=== PATIENT | female | born 1960 ===

== ENCOUNTER 2017-07-01 13:34 | Inpatient (IN) ==
[2017-07-01] MEDS ORDERED: GLUCAGON 1 MG VIAL IM PRN (15:57)
[2017-07-01] MEDS ORDERED: DEXTROSE 50% 25 GM/50 ML VIAL IV PRN (15:57)
[2017-07-01] MEDS ORDERED: INFLUENZA VIRUS VACCINE 0.5 ML SYRINGE IM ONE (16:21)
[2017-07-01] MEDS ORDERED: SODIUM CHLORIDE 0.9% 1,000 ML IV ONE (16:51)
[2017-07-01 17:30] LABS: Basophils % 0.2 % (0.0-0.8); Eosinophils % 0.3 % (0.00-10.9); Hematocrit 23.2 VOL% (35.7-47.0); Hemoglobin 7.5 GM/DL (12.0-16.0); Immature Granulocytes % 0.5 %; Immature Granulocytes Absolute 0.07 #; Lymphocytes # 1.4 10*3/uL (1.4-4.0); Mean Corpuscular HGB Conc 32.3 GM/DL (32-36); Mean Corpuscular Hemoglobin 29 PG (27-34); Mean Corpuscular Volume 90.3 FL (87-102); Mean Platelet Volume 12.5 FL (9.6-12.0); Monocytes # 0.9 10*3/uL (0.11-0.8); Monocytes % 6.3 % (1.7-12.7); Neutrophils % 82.7 % (38.7-73.9); Platelet Count 80 T/CUMM (130-400); Red Blood Count 2.57 MC/CUMM (3.8-5.5); Red Cell Distribution Width 15.7 % (9.3-17.3); White Blood Count 14.4 T/CUMM (4-12)
[2017-07-01 17:51] LABS: Osmolality,Calculated 294.7 MOS/KG (273-304); Potassium 4.6 MMOL/L (3.5-5.1)
[2017-07-01] MEDS ORDERED: LEVOFLOXACIN INJ 500 MG in PREMIX 1 EACH IV ONE (18:00)
[2017-07-01] MEDS ORDERED: LEVOFLOXACIN INJ 750 MG in PREMIX 1 EACH IV ONE (18:30)
[2017-07-01] MEDS ORDERED: SODIUM CHLORIDE 0.9% 1,000 ML IV SCH (19:00)
[2017-07-01] MEDS ORDERED: FUROSEMIDE 20 MG/2 ML VIAL IV SCH (19:00)
[2017-07-01 19:38] LABS: Band Neutrophils 1 % (0-10); Eosinophils 1 % (0-10); Lymphocytes 11 % (20-55); Myelocytes 2 %; Segmented Neutrophils 82 % (50-85); Total Cells Counted 100
[2017-07-01 19:39] LABS: Anisocytosis 1+; Hypochromasia 1+; Platelet Estimate Decreased
[2017-07-02 02:15] LABS: Apearance,Urine CLEAR (Clear); Bilirubin,Urine Negative (Negative); Blood, Urine Small mg/dL (Negative); Glucose,Urine (UA) 50 mg/dL (Negative); Ketones,Urine Negative (Negative); Mucus,Urine Occasional /LPF (Occasional); Nitrite,Urine Negative (Negative); Protein,Urine 100 MG/DL; RBC,Urine 2 /HPF (0-4); Squamous Epithelial Cell,Urine Occasional /HPF (0-10); Urine Color Straw (Yellow); Urine Specific Gravity 1.006 (1.001-1.035); Urine Urobilinogen < 2.0 EU/DL (0.2-1.0); WBC,Urine 13 /HPF (0-6)
[2017-07-02] MEDS ORDERED: SODIUM CHLORIDE 0.45% 1,000 ML IV SCH (03:00)
[2017-07-02 04:24] LABS: ABG Base Excess -9.5 MMOL/L (-2.5-2.5); ABG HCO3 15.6 MMOL/L (20-26); ABG Oxygen Saturation 91.4 % (95-100); ABG PCO2 30.6 MM HG (35-48); ABG PH 7.326 (7.35-7.45); ABG PO2 60.8 MM HG (80-95); ABG TCO2 16.6 MMOL/L (23-27); Allen Test Positive
[2017-07-02 05:42] LABS: Basophils % 0.2 % (0.0-0.8); Eosinophils # 0.2 10*3/uL (0.0-0.87); Eosinophils % 1.6 % (0.00-10.9); Hematocrit 21.6 VOL% (35.7-47.0); Immature Granulocytes % 0.7 %; Immature Granulocytes Absolute 0.09 #; Lymphocytes # 3.2 10*3/uL (1.4-4.0); Lymphocytes % 24.1 % (21.3-54.2); Mean Corpuscular HGB Conc 32.4 GM/DL (32-36); Mean Corpuscular Hemoglobin 29 PG (27-34); Monocytes # 0.8 10*3/uL (0.11-0.8); Monocytes % 5.8 % (1.7-12.7); Neutrophils % 67.6 % (38.7-73.9); Red Cell Distribution Width 15.9 % (9.3-17.3); White Blood Count 13.2 T/CUMM (4-12)
[2017-07-02 05:48] LABS: INR 1.2; PT Patient Result 12.2 SECS
[2017-07-02 05:58] LABS: Platelet Count 67 T/CUMM (130-400)
[2017-07-02 06:17] LABS: Albumin 2.7 G/DL (3.4-5.0); Bilirubin,Total 0.9 MG/DL (0.2-1.0); Calcium 7.5 MG/DL (8.5-10.1); Osmolality,Calculated 297.3 MOS/KG (273-304); Potassium 4.9 MMOL/L (3.5-5.1); Total Protein 6.7 G/DL (6.4-8.3)
[2017-07-02 06:22] LABS: Calcium 7.5 MG/DL (8.5-10.1); Magnesium 1.8 MG/DL (1.8-2.4); Osmolality,Calculated 297.3 MOS/KG (273-304); Potassium 4.9 MMOL/L (3.5-5.1)
[2017-07-02 06:51] LABS: Hypochromasia 1+; Microcytosis 1+; Platelet Estimate Decreased
[2017-07-02 06:52] LABS: Anisocytosis 1+
[2017-07-02] MEDS ORDERED: FUROSEMIDE 40 MG/4 ML VIAL IV ONE (07:05)
[2017-07-02] MEDS: cefTRIAXone 1,000 MG in SYRINGE 1 EACH IV SCH ×2 (11:54→23:13)
[2017-07-02 13:38] LABS: Apearance,Urine CLEAR (Clear); Bacteria,Urine Occasional /HPF (Few); Bilirubin,Urine Negative (Negative); Blood, Urine Small mg/dL (Negative); Glucose,Urine (UA) 50 mg/dL (Negative); Ketones,Urine Negative (Negative); Mucus,Urine Occasional /LPF (Occasional); Nitrite,Urine Negative (Negative); Protein,Urine 100 MG/DL; RBC,Urine 4 /HPF (0-4); Squamous Epithelial Cell,Urine Occasional /HPF (0-10); Urine Color Straw (Yellow); Urine Specific Gravity 1.005 (1.001-1.035); Urine Urobilinogen < 2.0 EU/DL (0.2-1.0); WBC,Urine 16 /HPF (0-6)
[2017-07-02] MEDS ORDERED: FUROSEMIDE 100 MG/10 ML VIAL IV ONE (14:47)
[2017-07-02] MEDS ORDERED: LEVOFLOXACIN INJ 750 MG in PREMIX 1 EACH IV ONE (18:00)
[2017-07-03 06:14] LABS: Albumin 2.8 G/DL (3.4-5.0); Calcium 7.9 MG/DL (8.5-10.1); Osmolality,Calculated 302.5 MOS/KG (273-304); Phosphorous 5.3 MG/DL (2.5-4.9)
[2017-07-03] MEDS ORDERED: FUROSEMIDE 100 MG/10 ML VIAL IV ONE (09:47)
[2017-07-03] MEDS: cefTRIAXone 1,000 MG in SYRINGE 1 EACH IV SCH ×2 (10:21→23:39)
[2017-07-03] MEDS ORDERED: diphenhydrAMINE CAP 25 MG CAPSULE PO PRN (16:26)
[2017-07-03] MEDS ORDERED: ACETAMINOPHEN 325 MG TABLET PO PRN (16:26)
[2017-07-03] MEDS ORDERED: SODIUM CHLORIDE 0.9% 1,000 ML IV PRN (16:26)
[2017-07-03] MEDS ORDERED: LEVOFLOXACIN INJ 500 MG in PREMIX 1 EACH IV SCH (18:00)
[2017-07-03] MEDS ORDERED: LEVOFLOXACIN INJ 250 MG in PREMIX 1 EACH IV SCH (18:00)
[2017-07-04 06:06] LABS: Basophils # 0.1 10*3/uL (0.0-0.2); Basophils % 0.7 % (0.0-0.8); Eosinophils # 0.7 10*3/uL (0.0-0.87); Eosinophils % 7.2 % (0.00-10.9); Hematocrit 28.8 VOL% (35.7-47.0); Immature Granulocytes % 0.7 %; Immature Granulocytes Absolute 0.07 #; Lymphocytes # 1.9 10*3/uL (1.4-4.0); Lymphocytes % 19.4 % (21.3-54.2); Mean Corpuscular Hemoglobin 29 PG (27-34); Mean Corpuscular Volume 85.7 FL (87-102); Mean Platelet Volume 12.3 FL (9.6-12.0); Monocytes # 0.6 10*3/uL (0.11-0.8); Monocytes % 6.2 % (1.7-12.7); Neutrophils # 6.3 10*3/uL (1.4-7.4); Neutrophils % 65.8 % (38.7-73.9); Red Cell Distribution Width 16.2 % (9.3-17.3); White Blood Count 9.5 T/CUMM (4-12)
[2017-07-04 06:21] LABS: Red Blood Count 3.36 MC/CUMM (3.8-5.5)
[2017-07-04 06:22] LABS: Hemoglobin 9.8 GM/DL (12.0-16.0); Platelet Count 67 T/CUMM (130-400)
[2017-07-04 06:29] LABS: Giant Platelets Few; Hypochromasia Slight; Microcytosis Slight; Ovalocytes Slight; Platelet Estimate Decreased
[2017-07-04 06:31] LABS: Calcium 8.1 MG/DL (8.5-10.1); Osmolality,Calculated 307.5 MOS/KG (273-304); Potassium 4.9 MMOL/L (3.5-5.1)
[2017-07-04 06:33] LABS: % Iron Saturation 37.8 % (18-50)
[2017-07-04] MEDS: cefTRIAXone 1,000 MG in SYRINGE 1 EACH IV SCH ×2 (11:03→22:55)
[2017-07-04] MEDS: amLODIPine 10 MG TABLET PO SCH (14:12)
[2017-07-04] MEDS: INSULIN LISPRO 100 UNIT/ML SUBCUT SCH ×2 (17:19→20:18)
[2017-07-04] MEDS: SODIUM BICARBONATE 650 MG TABLET PO SCH (20:17)
[2017-07-05] MEDS: INSULIN LISPRO 100 UNIT/ML SUBCUT SCH ×2 (08:58→13:58)
[2017-07-05] MEDS: SODIUM BICARBONATE 650 MG TABLET PO SCH (09:00)
[2017-07-05] MEDS: amLODIPine 10 MG TABLET PO SCH (09:00)
[2017-07-05 12:52] LABS: Calcium 7.7 MG/DL (8.5-10.1); Osmolality,Calculated 309.7 MOS/KG (273-304); Potassium 4.9 MMOL/L (3.5-5.1)
[2017-07-05] MEDS: cefTRIAXone 1,000 MG in SYRINGE 1 EACH IV SCH (13:01)
[2017-07-05 16:22] VITALS: BP 145/71
== END 2017-07-05 16:00 | disposition home or self-care (01) | DRG 682 ==
LOC: SUATTDRO 15:25 → N.5E 15:25
PROVIDERS: ADMIT Internal Medicine Cardiovascular Disease; ATTEND Internal Medicine

== ENCOUNTER 2017-07-21 05:01 | Inpatient (IN) ==
[2017-07-21] MEDS ORDERED: ALBUTEROL 2.5 MG/3 ML NEB RESP TX PRN (05:45)
[2017-07-21] MEDS ORDERED: DEXTROSE 50% 25 GM/50 ML VIAL IV PRN (06:01)
[2017-07-21] MEDS ORDERED: ACETAMINOPHEN 325 MG TABLET PO PRN (06:01)
[2017-07-21] MEDS ORDERED: GLUCAGON 1 MG VIAL IM PRN (06:01)
[2017-07-21] MEDS ORDERED: MAGNESIUM SULF RIDER 4 GM in PREMIX 1 EACH IV PRN (06:04)
[2017-07-21] MEDS ORDERED: MAGNESIUM SULF RIDER 2 GM in PREMIX 1 EACH IV PRN (06:04)
[2017-07-21] MEDS ORDERED: AZITHROMYCIN INJ 500 MG in SODIUM CHLORIDE 0.9% 250 ML IV SCH (06:30)
[2017-07-21] MEDS ORDERED: ALBUTEROL/IPRATROPIUM 3 ML NEB RESP TX SCH (07:00)
[2017-07-21] MEDS ORDERED: AZITHROMYCIN 500 MG VIAL IV ONE (07:27)
[2017-07-21] MEDS ORDERED: ENOXAPARIN 40 MG/0.4 ML SYRINGE ONE (07:28)
[2017-07-21] MEDS: ENOXAPARIN 30 MG/0.3 ML SYRINGE SUBCUT SCH (07:35)
[2017-07-21] MEDS ORDERED: FUROSEMIDE 100 MG/10 ML VIAL ONE (08:28)
[2017-07-21] MEDS ORDERED: PANTOPRAZOLE 40 MG TABLET PO ONE (08:28)
[2017-07-21] MEDS: FUROSEMIDE 40 MG/4 ML VIAL IV SCH ×2 (08:28→19:56)
[2017-07-21] MEDS: PANTOPRAZOLE 40 MG TABLET PO SCH (08:45)
[2017-07-21] MEDS ORDERED: cefTRIAXone 1,000 MG VIAL ONE (09:45)
[2017-07-21] MEDS ORDERED: ALBUTEROL 2.5 MG/3 ML NEB RESP TX ONE (10:40)
[2017-07-21] MEDS: INSULIN REGULAR 100 UNIT/ML SUBCUT SCH ×3 (10:50→22:05)
[2017-07-21] MEDS ORDERED: INSULIN REGULAR 100 UNIT/ML ONE (10:51)
[2017-07-21 12:38] LABS: ABG Base Excess -5.8 MMOL/L (-2.5-2.5); ABG HCO3 19.5 MMOL/L (20-26); ABG Oxygen Saturation 94.3 % (95-100); ABG PCO2 40.4 MM HG (35-48); ABG PH 7.304 (7.35-7.45); ABG PO2 75.4 MM HG (80-95)
[2017-07-21] MEDS ORDERED: hydrALAZINE 20 MG/1 ML VIAL IV PRN (13:10)
[2017-07-21 13:33] LABS: Basophils % 0.4 % (0.0-0.8); Eosinophils # 0.1 10*3/uL (0.0-0.87); Eosinophils % 0.9 % (0.00-10.9); Hematocrit 23.2 VOL% (35.7-47.0); Hemoglobin 7.6 GM/DL (12.0-16.0); Immature Granulocytes % 0.3 %; Immature Granulocytes Absolute 0.03 #; Lymphocytes # 2.1 10*3/uL (1.4-4.0); Lymphocytes % 23.5 % (21.3-54.2); Mean Corpuscular HGB Conc 32.8 GM/DL (32-36); Mean Corpuscular Hemoglobin 30 PG (27-34); Mean Corpuscular Volume 91.7 FL (87-102); Mean Platelet Volume 13.1 FL (9.6-12.0); Monocytes # 0.5 10*3/uL (0.11-0.8); Monocytes % 5.6 % (1.7-12.7); Neutrophils # 6.2 10*3/uL (1.4-7.4); Neutrophils % 69.3 % (38.7-73.9); Platelet Count 65 T/CUMM (130-400); Red Blood Count 2.53 MC/CUMM (3.8-5.5); Red Cell Distribution Width 15.9 % (9.3-17.3); White Blood Count 8.9 T/CUMM (4-12)
[2017-07-21 14:10] LABS: Bilirubin,Total 0.7 MG/DL (0.2-1.0); Calcium 8.1 MG/DL (8.5-10.1); Osmolality,Calculated 311.3 MOS/KG (273-304); Potassium 5.4 MMOL/L (3.5-5.1); Total Protein 7.5 G/DL (6.4-8.3)
[2017-07-21] MEDS ORDERED: SODIUM POLYSTYRENE SULFATE 15 GM/60 ML BOTTLE PO STA (14:57)
[2017-07-21] MEDS ORDERED: VANCOMYCIN INJ 1,250 MG in SODIUM CHLORIDE 0.9% 250 ML IV PRN (15:32)
[2017-07-21 15:55] LABS: Apearance,Urine CLEAR (Clear); Bacteria,Urine Occasional /HPF (Few); Bilirubin,Urine Negative (Negative); Blood, Urine Small mg/dL (Negative); Glucose,Urine (UA) 50 mg/dL (Negative); Hyaline Casts,Urine 1 /LPF (0-3); Ketones,Urine Negative (Negative); Nitrite,Urine Negative (Negative); Protein,Urine 100 MG/DL; RBC,Urine 4 /HPF (0-4); Squamous Epithelial Cell,Urine Occasional /HPF (0-10); Urine Color Straw (Yellow); Urine Specific Gravity 1.006 (1.001-1.035); Urine Urobilinogen < 2.0 EU/DL (0.2-1.0); WBC,Urine 5 /HPF (0-6)
[2017-07-21] MEDS ORDERED: LEVOFLOXACIN INJ 750 MG in PREMIX 1 EACH IV ONE (16:00)
[2017-07-21] MEDS: ALBUTEROL/IPRATROPIUM 3 ML NEB RESP TX SCH ×3 (16:17→23:12)
[2017-07-21] MEDS ORDERED: VANCOMYCIN INJ 1,250 MG in SODIUM CHLORIDE 0.45% 250 ML IV ONE (16:30)
[2017-07-21] MEDS: PIPERACILLIN/TAZOBACTAM 3,375 MG in SODIUM CHLORIDE 0.9% 100 ML IV SCH (22:06)
[2017-07-22] MEDS: ALBUTEROL/IPRATROPIUM 3 ML NEB RESP TX SCH ×6 (03:02→22:08)
[2017-07-22 05:38] LABS: Basophils % 0.4 % (0.0-0.8); Eosinophils # 0.5 10*3/uL (0.0-0.87); Eosinophils % 6.6 % (0.00-10.9); Hematocrit 22.7 VOL% (35.7-47.0); Hemoglobin 7.2 GM/DL (12.0-16.0); Immature Granulocytes % 0.6 %; Immature Granulocytes Absolute 0.05 #; Lymphocytes # 1.1 10*3/uL (1.4-4.0); Lymphocytes % 13.7 % (21.3-54.2); Mean Corpuscular HGB Conc 31.7 GM/DL (32-36); Mean Corpuscular Hemoglobin 29 PG (27-34); Mean Corpuscular Volume 92.3 FL (87-102); Mean Platelet Volume 13.7 FL (9.6-12.0); Monocytes # 0.6 10*3/uL (0.11-0.8); Monocytes % 7.9 % (1.7-12.7); Neutrophils # 5.6 10*3/uL (1.4-7.4); Neutrophils % 70.8 % (38.7-73.9); Platelet Count 53 T/CUMM (130-400); Red Blood Count 2.46 MC/CUMM (3.8-5.5); Red Cell Distribution Width 15.9 % (9.3-17.3)
[2017-07-22 05:41] LABS: Calcium 7.7 MG/DL (8.5-10.1); Osmolality,Calculated 310.4 MOS/KG (273-304); Potassium 5.1 MMOL/L (3.5-5.1)
[2017-07-22] MEDS ORDERED: cefTRIAXone 1,000 MG in SYRINGE 1 EACH IV SCH (06:00)
[2017-07-22] MEDS: ENOXAPARIN 30 MG/0.3 ML SYRINGE SUBCUT SCH (06:29)
[2017-07-22 06:32] LABS: Giant Platelets Few; Hypochromasia 1+; Ovalocytes Slight; Platelet Estimate Decreased
[2017-07-22 06:33] LABS: Microcytosis Slight
[2017-07-22] MEDS: INSULIN REGULAR 100 UNIT/ML SUBCUT SCH ×4 (08:33→20:23)
[2017-07-22] MEDS: PANTOPRAZOLE 40 MG TABLET PO SCH (08:34)
[2017-07-22] MEDS: FUROSEMIDE 40 MG/4 ML VIAL IV SCH ×2 (08:34→16:18)
[2017-07-22] MEDS: PIPERACILLIN/TAZOBACTAM 3,375 MG in SODIUM CHLORIDE 0.9% 100 ML IV SCH ×2 (08:36→20:26)
[2017-07-22] MEDS ORDERED: CARBOXYMETHYLCELLULOSE 1% OPH SOLN BOTH EYES PRN (17:02)
[2017-07-22] MEDS: GABAPENTIN 100 MG CAPSULE PO SCH ×2 (17:58→20:22)
[2017-07-22] MEDS: DOCUSATE SODIUM 100 MG CAPSULE PO SCH (20:22)
[2017-07-22] MEDS: amLODIPine 10 MG TABLET PO SCH (20:22)
[2017-07-22] MEDS: PRAVASTATIN 40 MG TABLET PO SCH (20:22)
[2017-07-22] MEDS: SODIUM BICARBONATE 650 MG TABLET PO SCH (20:22)
[2017-07-23] MEDS: ALBUTEROL/IPRATROPIUM 3 ML NEB RESP TX SCH ×6 (02:46→23:28)
[2017-07-23 07:01] LABS: Basophils # 0.1 10*3/uL (0.0-0.2); Basophils % 0.6 % (0.0-0.8); Eosinophils % 10.5 % (0.00-10.9); Hematocrit 24.4 VOL% (35.7-47.0); Hemoglobin 7.9 GM/DL (12.0-16.0); Immature Granulocytes % 0.4 %; Immature Granulocytes Absolute 0.04 #; Lymphocytes # 1.9 10*3/uL (1.4-4.0); Lymphocytes % 19.8 % (21.3-54.2); Mean Corpuscular HGB Conc 32.4 GM/DL (32-36); Mean Corpuscular Hemoglobin 29 PG (27-34); Mean Platelet Volume 14.1 FL (9.6-12.0); Monocytes # 0.7 10*3/uL (0.11-0.8); Monocytes % 7.7 % (1.7-12.7); Neutrophils # 5.7 10*3/uL (1.4-7.4); Platelet Count 61 T/CUMM (130-400); Red Blood Count 2.71 MC/CUMM (3.8-5.5); White Blood Count 9.4 T/CUMM (4-12)
[2017-07-23 07:17] LABS: Magnesium 2.2 MG/DL (1.8-2.4); Osmolality,Calculated 309.5 MOS/KG (273-304); Potassium 5.4 MMOL/L (3.5-5.1)
[2017-07-23 07:35] LABS: Eosinophils 6 % (0-10); Hypochromasia 2+; Lymphocytes 18 % (20-55); Microcytosis 1+; Platelet Estimate Decreased; Segmented Neutrophils 70 % (50-85); Total Cells Counted 100
[2017-07-23] MEDS: INSULIN REGULAR 100 UNIT/ML SUBCUT SCH ×4 (08:39→20:28)
[2017-07-23] MEDS: PIPERACILLIN/TAZOBACTAM 3,375 MG in SODIUM CHLORIDE 0.9% 100 ML IV SCH (10:12)
[2017-07-23] MEDS: SODIUM BICARBONATE 650 MG TABLET PO SCH ×2 (10:12→20:23)
[2017-07-23] MEDS: PANTOPRAZOLE 40 MG TABLET PO SCH (10:12)
[2017-07-23] MEDS: MULTIVITAMIN (CENTRUM) TABLET PO SCH (10:13)
[2017-07-23] MEDS: FERROUS SULFATE 325 MG TABLET PO SCH (10:13)
[2017-07-23] MEDS: GABAPENTIN 100 MG CAPSULE PO SCH ×3 (10:14→20:24)
[2017-07-23] MEDS: FUROSEMIDE 40 MG/4 ML VIAL IV SCH ×2 (10:14→15:37)
[2017-07-23] MEDS: FOLIC ACID 1 MG TABLET PO SCH (10:14)
[2017-07-23] MEDS: LEVOFLOXACIN INJ 500 MG in PREMIX 1 EACH IV SCH (15:36)
[2017-07-23] MEDS: amLODIPine 10 MG TABLET PO SCH (18:10)
[2017-07-23] MEDS: PRAVASTATIN 40 MG TABLET PO SCH (20:23)
[2017-07-23] MEDS: DOCUSATE SODIUM 100 MG CAPSULE PO SCH (20:24)
[2017-07-24 03:20] LABS: Calcium 7.7 MG/DL (8.5-10.1); Magnesium 2.2 MG/DL (1.8-2.4); Osmolality,Calculated 312.7 MOS/KG (273-304); Potassium 5.3 MMOL/L (3.5-5.1)
[2017-07-24] MEDS: ALBUTEROL/IPRATROPIUM 3 ML NEB RESP TX SCH ×6 (03:47→23:00)
[2017-07-24 03:53] LABS: Basophils % 0.5 % (0.0-0.8); Eosinophils # 1.1 10*3/uL (0.0-0.87); Eosinophils % 12.1 % (0.00-10.9); Hemoglobin 7.5 GM/DL (12.0-16.0); Immature Granulocytes % 0.5 %; Immature Granulocytes Absolute 0.04 #; Lymphocytes # 1.8 10*3/uL (1.4-4.0); Lymphocytes % 20.5 % (21.3-54.2); Mean Corpuscular HGB Conc 32.6 GM/DL (32-36); Mean Corpuscular Hemoglobin 29 PG (27-34); Mean Corpuscular Volume 88.8 FL (87-102); Monocytes # 0.6 10*3/uL (0.11-0.8); Monocytes % 7.2 % (1.7-12.7); Neutrophils # 5.2 10*3/uL (1.4-7.4); Neutrophils % 59.2 % (38.7-73.9); Platelet Count 56 T/CUMM (130-400); Red Blood Count 2.59 MC/CUMM (3.8-5.5); White Blood Count 8.8 T/CUMM (4-12)
[2017-07-24 07:55] LABS: Eosinophils 16 % (0-10); Hypochromasia 2+; Lymphocytes 16 % (20-55); Platelet Estimate Decreased; Segmented Neutrophils 62 % (50-85); Total Cells Counted 100
[2017-07-24] MEDS: FERROUS SULFATE 325 MG TABLET PO SCH (09:24)
[2017-07-24] MEDS: INSULIN REGULAR 100 UNIT/ML SUBCUT SCH ×4 (09:24→21:53)
[2017-07-24] MEDS: SODIUM BICARBONATE 650 MG TABLET PO SCH ×2 (09:25→21:52)
[2017-07-24] MEDS: MULTIVITAMIN (CENTRUM) TABLET PO SCH (09:25)
[2017-07-24] MEDS: FOLIC ACID 1 MG TABLET PO SCH (09:25)
[2017-07-24] MEDS: GABAPENTIN 100 MG CAPSULE PO SCH ×3 (09:26→21:52)
[2017-07-24] MEDS: PANTOPRAZOLE 40 MG TABLET PO SCH (09:27)
[2017-07-24] MEDS: FUROSEMIDE 40 MG/4 ML VIAL IV SCH (09:27)
[2017-07-24] MEDS: amLODIPine 10 MG TABLET PO SCH (18:15)
[2017-07-24] MEDS: PRAVASTATIN 40 MG TABLET PO SCH (21:52)
[2017-07-24] MEDS: DOCUSATE SODIUM 100 MG CAPSULE PO SCH (21:52)
[2017-07-25] MEDS: ALBUTEROL/IPRATROPIUM 3 ML NEB RESP TX SCH ×6 (03:22→23:39)
[2017-07-25 07:04] LABS: Basophils % 0.4 % (0.0-0.8); Eosinophils # 0.8 10*3/uL (0.0-0.87); Eosinophils % 8.5 % (0.00-10.9); Hematocrit 24.8 VOL% (35.7-47.0); Hemoglobin 8.2 GM/DL (12.0-16.0); Immature Granulocytes % 0.2 %; Immature Granulocytes Absolute 0.02 #; Lymphocytes # 2.1 10*3/uL (1.4-4.0); Lymphocytes % 23.3 % (21.3-54.2); Mean Corpuscular HGB Conc 33.1 GM/DL (32-36); Mean Corpuscular Hemoglobin 29 PG (27-34); Mean Corpuscular Volume 87.9 FL (87-102); Mean Platelet Volume 13.3 FL (9.6-12.0); Monocytes # 0.6 10*3/uL (0.11-0.8); Monocytes % 6.4 % (1.7-12.7); Neutrophils # 5.4 10*3/uL (1.4-7.4); Neutrophils % 61.2 % (38.7-73.9); Platelet Count 59 T/CUMM (130-400); Red Blood Count 2.82 MC/CUMM (3.8-5.5); Red Cell Distribution Width 15.8 % (9.3-17.3); White Blood Count 8.9 T/CUMM (4-12)
[2017-07-25] MEDS ORDERED: EPOETIN ALFA 2,000 UNIT/1 ML VIAL IV PRN (07:25)
[2017-07-25 07:31] LABS: Giant Platelets Few; Hypochromasia Slight; Ovalocytes Slight; Platelet Estimate Decreased
[2017-07-25 07:32] LABS: Microcytosis Slight
[2017-07-25 07:37] LABS: Calcium 7.9 MG/DL (8.5-10.1); Magnesium 2.3 MG/DL (1.8-2.4); Osmolality,Calculated 309.8 MOS/KG (273-304); Potassium 5.1 MMOL/L (3.5-5.1)
[2017-07-25] MEDS: INSULIN REGULAR 100 UNIT/ML SUBCUT SCH ×4 (08:20→21:38)
[2017-07-25] MEDS: LEVOFLOXACIN INJ 500 MG in PREMIX 1 EACH IV SCH (08:21)
[2017-07-25 11:52] LABS: Hepatitis B Surface Ag Quant 0.33 Index; Hepatitis B Surface Ag Result Negative (Negative)
[2017-07-25] MEDS ORDERED: HEPARIN 5,000 UNIT/1 ML VIAL ONE (12:08)
[2017-07-25 12:51] LABS: Hepatitis A Ab IgM Quant 0.15 Index; Hepatitis A Ab IgM Result Negative (Negative); Hepatitis B Core IgM Quant 0.21 Index; Hepatitis B Core IgM Result Negative (Negative)
[2017-07-25 12:52] LABS: Hepatitis C Virus Ab Quant 0.04 Index; Hepatitis C Virus Ab Result Negative (Negative)
[2017-07-25] MEDS ORDERED: ceFAZolin 1,000 MG VIAL ONE (13:00)
[2017-07-25] MEDS ORDERED: PROPOFOL 200 MG/20 ML VIAL IV ONE (13:19)
[2017-07-25] MEDS ORDERED: fentaNYL 100 MCG/2 ML VIAL ONE (13:19)
[2017-07-25] MEDS ORDERED: HEPARIN 10,000 UNIT/10 ML VIAL IV PRN (15:05)
[2017-07-25] MEDS: GABAPENTIN 100 MG CAPSULE PO SCH ×2 (16:48→21:38)
[2017-07-25] MEDS: SODIUM BICARBONATE 650 MG TABLET PO SCH ×2 (16:49→21:37)
[2017-07-25] MEDS: MULTIVITAMIN (CENTRUM) TABLET PO SCH (17:22)
[2017-07-25] MEDS: FOLIC ACID 1 MG TABLET PO SCH (17:22)
[2017-07-25] MEDS: PANTOPRAZOLE 40 MG TABLET PO SCH (17:22)
[2017-07-25] MEDS: FERROUS SULFATE 325 MG TABLET PO SCH (17:22)
[2017-07-25] MEDS: PRAVASTATIN 40 MG TABLET PO SCH (21:38)
[2017-07-25] MEDS: DOCUSATE SODIUM 100 MG CAPSULE PO SCH (21:38)
[2017-07-25] MEDS: amLODIPine 10 MG TABLET PO SCH (21:38)
[2017-07-26] MEDS: ALBUTEROL/IPRATROPIUM 3 ML NEB RESP TX SCH ×5 (02:41→20:09)
[2017-07-26 06:34] LABS: Basophils % 0.5 % (0.0-0.8); Eosinophils # 0.7 10*3/uL (0.0-0.87); Eosinophils % 8.6 % (0.00-10.9); Hematocrit 26.4 VOL% (35.7-47.0); Hemoglobin 8.5 GM/DL (12.0-16.0); Immature Granulocytes % 0.6 %; Immature Granulocytes Absolute 0.05 #; Lymphocytes # 1.6 10*3/uL (1.4-4.0); Lymphocytes % 19.3 % (21.3-54.2); Mean Corpuscular HGB Conc 32.2 GM/DL (32-36); Mean Corpuscular Hemoglobin 29 PG (27-34); Mean Corpuscular Volume 89.2 FL (87-102); Mean Platelet Volume 13.7 FL (9.6-12.0); Monocytes # 0.7 10*3/uL (0.11-0.8); Monocytes % 8.7 % (1.7-12.7); Neutrophils # 5.3 10*3/uL (1.4-7.4); Neutrophils % 62.3 % (38.7-73.9); Platelet Count 56 T/CUMM (130-400); Red Blood Count 2.96 MC/CUMM (3.8-5.5); Red Cell Distribution Width 15.9 % (9.3-17.3); White Blood Count 8.5 T/CUMM (4-12)
[2017-07-26 07:03] LABS: Calcium 8.3 MG/DL (8.5-10.1); Magnesium 2.4 MG/DL (1.8-2.4); Osmolality,Calculated 302.4 MOS/KG (273-304); Potassium 4.8 MMOL/L (3.5-5.1)
[2017-07-26 07:08] LABS: Hypochromasia 1+; Microcytosis Slight; Platelet Estimate Decreased
[2017-07-26] MEDS: GABAPENTIN 100 MG CAPSULE PO SCH ×3 (09:53→21:37)
[2017-07-26] MEDS: SODIUM BICARBONATE 650 MG TABLET PO SCH ×2 (09:53→21:35)
[2017-07-26] MEDS: FERROUS SULFATE 325 MG TABLET PO SCH (09:54)
[2017-07-26] MEDS: MULTIVITAMIN (CENTRUM) TABLET PO SCH (09:54)
[2017-07-26] MEDS: FOLIC ACID 1 MG TABLET PO SCH (09:54)
[2017-07-26] MEDS: PANTOPRAZOLE 40 MG TABLET PO SCH (09:54)
[2017-07-26] MEDS: INSULIN REGULAR 100 UNIT/ML SUBCUT SCH ×4 (09:55→21:37)
[2017-07-26] MEDS ORDERED: ONDANSETRON 4 MG/2 ML VIAL IV PRN (13:05)
[2017-07-26] MEDS: amLODIPine 10 MG TABLET PO SCH (21:36)
[2017-07-26] MEDS: DOCUSATE SODIUM 100 MG CAPSULE PO SCH (21:36)
[2017-07-26] MEDS: PRAVASTATIN 40 MG TABLET PO SCH (21:36)
[2017-07-27] MEDS: ALBUTEROL/IPRATROPIUM 3 ML NEB RESP TX SCH ×7 (00:19→23:59)
[2017-07-27 06:27] LABS: Basophils # 0.1 10*3/uL (0.0-0.2); Basophils % 0.5 % (0.0-0.8); Eosinophils # 0.6 10*3/uL (0.0-0.87); Eosinophils % 6.2 % (0.00-10.9); Hematocrit 28.8 VOL% (35.7-47.0); Hemoglobin 9.2 GM/DL (12.0-16.0); Immature Granulocytes % 1.1 %; Immature Granulocytes Absolute 0.11 #; Lymphocytes # 3.2 10*3/uL (1.4-4.0); Lymphocytes % 31.3 % (21.3-54.2); Mean Corpuscular HGB Conc 31.9 GM/DL (32-36); Mean Corpuscular Hemoglobin 29 PG (27-34); Mean Corpuscular Volume 91.1 FL (87-102); Mean Platelet Volume 13.7 FL (9.6-12.0); NRBC # 0.03 10*3/uL; Neutrophils # 5.2 10*3/uL (1.4-7.4); Neutrophils % 50.9 % (38.7-73.9); Platelet Count 56 T/CUMM (130-400); Red Blood Count 3.16 MC/CUMM (3.8-5.5); Red Cell Distribution Width 15.7 % (9.3-17.3); White Blood Count 10.1 T/CUMM (4-12)
[2017-07-27 06:53] LABS: Calcium 8.5 MG/DL (8.5-10.1); Magnesium 2.4 MG/DL (1.8-2.4); Osmolality,Calculated 290.7 MOS/KG (273-304); Potassium 4.8 MMOL/L (3.5-5.1)
[2017-07-27 06:58] LABS: Hypochromasia 1+; Platelet Estimate Decreased
[2017-07-27 06:59] LABS: Giant Platelets Few; Microcytosis Slight
[2017-07-27] MEDS: SODIUM BICARBONATE 650 MG TABLET PO SCH ×2 (09:17→21:20)
[2017-07-27] MEDS: FOLIC ACID 1 MG TABLET PO SCH (09:18)
[2017-07-27] MEDS: PANTOPRAZOLE 40 MG TABLET PO SCH (09:18)
[2017-07-27] MEDS: GABAPENTIN 100 MG CAPSULE PO SCH ×3 (09:18→21:20)
[2017-07-27] MEDS: FERROUS SULFATE 325 MG TABLET PO SCH (09:18)
[2017-07-27] MEDS: INSULIN REGULAR 100 UNIT/ML SUBCUT SCH ×3 (09:18→16:59)
[2017-07-27] MEDS: MULTIVITAMIN (CENTRUM) TABLET PO SCH (09:18)
[2017-07-27] MEDS: PRAVASTATIN 40 MG TABLET PO SCH (21:20)
[2017-07-27] MEDS: DOCUSATE SODIUM 100 MG CAPSULE PO SCH (21:20)
[2017-07-27] MEDS: amLODIPine 10 MG TABLET PO SCH (21:20)
[2017-07-28] MEDS: INSULIN REGULAR 100 UNIT/ML SUBCUT SCH ×5 (00:20→21:22)
[2017-07-28] MEDS: ALBUTEROL/IPRATROPIUM 3 ML NEB RESP TX SCH ×5 (08:23→20:32)
[2017-07-28] MEDS: FERROUS SULFATE 325 MG TABLET PO SCH (10:15)
[2017-07-28] MEDS: PANTOPRAZOLE 40 MG TABLET PO SCH (10:15)
[2017-07-28] MEDS: FOLIC ACID 1 MG TABLET PO SCH (10:15)
[2017-07-28] MEDS: SODIUM BICARBONATE 650 MG TABLET PO SCH (10:15)
[2017-07-28] MEDS: GABAPENTIN 100 MG CAPSULE PO SCH ×3 (10:15→21:23)
[2017-07-28] MEDS: MULTIVITAMIN (CENTRUM) TABLET PO SCH (10:15)
[2017-07-28] MEDS ORDERED: INSULIN GLARGINE 100 UNIT/ML SUBCUT SCH (21:00)
[2017-07-28] MEDS: amLODIPine 10 MG TABLET PO SCH (21:22)
[2017-07-28] MEDS: DOCUSATE SODIUM 100 MG CAPSULE PO SCH (21:23)
[2017-07-28] MEDS: PRAVASTATIN 40 MG TABLET PO SCH (21:23)
[2017-07-29] MEDS: ALBUTEROL/IPRATROPIUM 3 ML NEB RESP TX SCH ×3 (03:43→07:10)
[2017-07-29 08:05] VITALS: BP 123/67
[2017-07-29] MEDS: INSULIN REGULAR 100 UNIT/ML SUBCUT SCH (09:16)
[2017-07-29] MEDS: FOLIC ACID 1 MG TABLET PO SCH (09:16)
[2017-07-29] MEDS: MULTIVITAMIN (CENTRUM) TABLET PO SCH (09:16)
[2017-07-29] MEDS: FERROUS SULFATE 325 MG TABLET PO SCH (09:16)
[2017-07-29] MEDS: PANTOPRAZOLE 40 MG TABLET PO SCH (09:17)
[2017-07-29] MEDS: GABAPENTIN 100 MG CAPSULE PO SCH (09:17)
== END 2017-07-29 10:20 | disposition home or self-care (01) | DRG 291 ==
LOC: EDBD → EDUNIT# → N.ED 05:01 → SUATTDRO 05:45 → N.EDINP 05:45 → N.ICU 15:18 → N.2E 07-22 16:59
PROVIDERS: ADMIT Internal Medicine; ATTEND Hospitalist

== ENCOUNTER 2018-07-06 14:02 | Observation (INO) ==
[2018-07-06 15:56] LABS: Basophils % 0.4 % (0.0-0.8); Eosinophils # 0.1 10*3/uL (0.0-0.87); Eosinophils % 0.8 % (0.00-10.9); Hematocrit 31.1 VOL% (35.7-47.0); Hemoglobin 10.8 GM/DL (12.0-16.0); Immature Granulocytes % 0.5 %; Immature Granulocytes Absolute 0.05 #; Lymphocytes # 1.4 10*3/uL (1.4-4.0); Lymphocytes % 13.9 % (21.3-54.2); Mean Corpuscular HGB Conc 34.7 GM/DL (32-36); Mean Corpuscular Hemoglobin 33 PG (27-34); Mean Corpuscular Volume 95.1 FL (87-102); Monocytes # 0.9 10*3/uL (0.11-0.8); Monocytes % 8.8 % (1.7-12.7); Neutrophils # 7.8 10*3/uL (1.4-7.4); Neutrophils % 75.6 % (38.7-73.9); Platelet Count 79 T/CUMM (130-400); Red Blood Count 3.27 MC/CUMM (3.8-5.5); Red Cell Distribution Width 15.2 % (9.3-17.3); White Blood Count 10.3 T/CUMM (4-12)
[2018-07-06 16:04] LABS: PT Patient Result 10.9 SECS; Partial Thromboplastin Time 27.6 SECS (0-40)
[2018-07-06 16:10] LABS: Calcium 9.2 MG/DL (8.5-10.1); Osmolality,Calculated 293.4 MOS/KG (273-304); Potassium 4.2 MMOL/L (3.5-5.1)
[2018-07-06] MEDS ORDERED: ONDANSETRON 4 MG/2 ML VIAL IV PRN (18:48)
[2018-07-06] MEDS ORDERED: DEXTROSE 50% 25 GM/50 ML VIAL IV PRN (18:48)
[2018-07-06] MEDS ORDERED: ACETAMINOPHEN 325 MG TABLET PO PRN (18:48)
[2018-07-06] MEDS ORDERED: GLUCAGON 1 MG VIAL IM PRN (18:48)
[2018-07-06] MEDS ORDERED: INSULIN REGULAR 100 UNIT/ML SUBCUT ONE (21:30)
[2018-07-07] MEDS: INSULIN REGULAR 100 UNIT/ML SUBCUT SCH ×5 (00:51→23:28)
[2018-07-07 03:53] LABS: Calcium 8.7 MG/DL (8.5-10.1); Osmolality,Calculated 297.4 MOS/KG (273-304); Potassium 3.7 MMOL/L (3.5-5.1)
[2018-07-07] MEDS ORDERED: LIDOCAINE 1%/EPI INJ 20 ML VIAL ONE (09:03)
[2018-07-07] MEDS ORDERED: HEPARIN 5,000 UNIT/1 ML VIAL ONE (09:13)
[2018-07-07] MEDS ORDERED: ceFAZolin 1,000 MG VIAL ONE (09:35)
[2018-07-07] MEDS ORDERED: PROPOFOL 200 MG/20 ML VIAL IV ONE (10:12)
[2018-07-07] MEDS ORDERED: MIDAZOLAM 2 MG/2 ML VIAL ONE (10:12)
[2018-07-07] MEDS ORDERED: SODIUM CHLORIDE 0.9% 250 ML IV ONE (10:13)
[2018-07-07] MEDS ORDERED: HEPARIN 10,000 UNIT/10 ML VIAL IV PRN (14:03)
[2018-07-08] MEDS: INSULIN REGULAR 100 UNIT/ML SUBCUT SCH ×2 (07:08→12:50)
[2018-07-08 12:36] VITALS: BP 151/70
== END 2018-07-08 14:40 | disposition home or self-care (01) ==
LOC: EDUNIT# → EDBD → N.EDINP 14:02 → N.ED 14:02 → N.3E 17:35
PROVIDERS: ADMIT Surgery; ATTEND Surgery

== ENCOUNTER 2019-12-07 09:57 | Inpatient (IN) ==
[2019-12-07] MEDS ORDERED: GLUCAGON 1 MG VIAL IM PRN (14:06)
[2019-12-07] MEDS ORDERED: ONDANSETRON 4 MG/2 ML VIAL IV PRN (14:06)
[2019-12-07] MEDS ORDERED: DEXTROSE 50% 25 GM/50 ML VIAL IV PRN ×2 (14:06)
[2019-12-07] MEDS ORDERED: DEXTROSE 10% 250 ML BAG IV PRN (14:11)
[2019-12-07] MEDS: INSULIN LISPRO 100 UNIT/ML SUBCUT SCH ×2 (17:35→21:00)
[2019-12-08] MEDS: ACETAMINOPHEN 325 MG TABLET PO PRN
[2019-12-08 06:07] LABS: Basophils # 0.1 10*3/uL (0.0-0.2); Basophils % 0.3 % (0.0-0.8); Eosinophils # 0.5 10*3/uL (0.0-0.87); Eosinophils % 2.5 % (0.00-10.9); Hematocrit 24.4 VOL% (35.7-47.0); Hemoglobin 7.8 GM/DL (12.0-16.0); Immature Granulocytes % 1.2 %; Immature Granulocytes Absolute 0.22 #; Lymphocytes # 2.1 10*3/uL (1.4-4.0); Lymphocytes % 11.2 % (21.3-54.2); Mean Corpuscular Volume 94.6 FL (87-102); Mean Platelet Volume 13.6 FL (9.6-12.0); Monocytes % 6.7 % (1.7-12.7); Neutrophils % 78.1 % (38.7-73.9); Platelet Count 59 T/CUMM (130-400); Red Blood Count 2.58 MC/CUMM (3.8-5.5); Red Cell Distribution Width 14.5 % (9.3-17.3); White Blood Count 18.9 T/CUMM (4-12)
[2019-12-08 06:35] LABS: Albumin 2.5 G/DL (3.4-5.0); Bilirubin,Total 0.7 MG/DL (0.2-1.0); Calcium 7.7 MG/DL (8.5-10.1); Osmolality,Calculated 275.4 MOS/KG (273-304); Total Protein 7.2 G/DL (6.4-8.3)
[2019-12-08] MEDS: cefTRIAXone 1,000 MG in SYRINGE 1 EACH IV SCH (08:46)
[2019-12-08] MEDS: PANTOPRAZOLE 40 MG TABLET PO SCH (08:46)
[2019-12-08 09:26] LABS: Anisocytosis 2+; Eosinophils 2 % (0-10); Lymphocytes 6 % (20-55); Metamyelocytes 1 %; Microcytosis 1+; Platelet Estimate Decreased; Polychromasia Slight; Segmented Neutrophils 87 % (50-85); Total Cells Counted 100
[2019-12-08] MEDS: INSULIN LISPRO 100 UNIT/ML SUBCUT SCH ×4 (09:36→21:00)
[2019-12-08] MEDS: AZITHROMYCIN INJ 500 MG in SODIUM CHLORIDE 0.9% 250 ML IV SCH (11:28)
[2019-12-08] MEDS: INSULIN GLARGINE 100 UNIT/ML SUBCUT SCH (23:20)
[2019-12-09] MEDS: ACETAMINOPHEN 325 MG TABLET PO PRN (01:25)
[2019-12-09 05:33] LABS: Basophils % 0.3 % (0.0-0.8); Eosinophils # 0.5 10*3/uL (0.0-0.87); Eosinophils % 3.5 % (0.00-10.9); Hematocrit 22.2 VOL% (35.7-47.0); Hemoglobin 7.3 GM/DL (12.0-16.0); Immature Granulocytes % 1.1 %; Immature Granulocytes Absolute 0.16 #; Lymphocytes # 1.9 10*3/uL (1.4-4.0); Lymphocytes % 13.2 % (21.3-54.2); Mean Corpuscular HGB Conc 32.9 GM/DL (32-36); Mean Corpuscular Volume 92.5 FL (87-102); Mean Platelet Volume 13.6 FL (9.6-12.0); Neutrophils % 75.9 % (38.7-73.9); Platelet Count 61 T/CUMM (130-400); Red Cell Distribution Width 14.5 % (9.3-17.3); White Blood Count 14.5 T/CUMM (4-12)
[2019-12-09 06:09] LABS: Albumin 2.3 G/DL (3.4-5.0); Bilirubin,Total 0.8 MG/DL (0.2-1.0); Calcium 7.1 MG/DL (8.5-10.1); Osmolality,Calculated 275.7 MOS/KG (273-304); Total Protein 7.2 G/DL (6.4-8.3)
[2019-12-09] MEDS: INSULIN LISPRO 100 UNIT/ML SUBCUT SCH ×4 (09:29→20:36)
[2019-12-09] MEDS: cefTRIAXone 1,000 MG in SYRINGE 1 EACH IV SCH (09:30)
[2019-12-09] MEDS: AZITHROMYCIN INJ 500 MG in SODIUM CHLORIDE 0.9% 250 ML IV SCH (09:30)
[2019-12-09] MEDS: PANTOPRAZOLE 40 MG TABLET PO SCH (10:43)
[2019-12-09 11:22] LABS: Hypochromasia 2+; Microcytosis 1+; Ovalocytes Few; Platelet Estimate Decreased; Polychromasia Slight
[2019-12-09] MEDS: INSULIN GLARGINE 100 UNIT/ML SUBCUT SCH (20:37)
[2019-12-10 06:30] LABS: Basophils % 0.3 % (0.0-0.8); Eosinophils # 0.4 10*3/uL (0.0-0.87); Eosinophils % 2.5 % (0.00-10.9); Hematocrit 22.2 VOL% (35.7-47.0); Hemoglobin 7.3 GM/DL (12.0-16.0); Immature Granulocytes % 1.1 %; Immature Granulocytes Absolute 0.15 #; Lymphocytes # 2.2 10*3/uL (1.4-4.0); Lymphocytes % 15.5 % (21.3-54.2); Mean Corpuscular HGB Conc 32.9 GM/DL (32-36); Mean Corpuscular Volume 91.7 FL (87-102); Mean Platelet Volume 13.1 FL (9.6-12.0); Monocytes % 5.9 % (1.7-12.7); Neutrophils % 74.7 % (38.7-73.9); Platelet Count 71 T/CUMM (130-400); Red Blood Count 2.42 MC/CUMM (3.8-5.5); Red Cell Distribution Width 14.6 % (9.3-17.3); White Blood Count 14.3 T/CUMM (4-12)
[2019-12-10 06:56] LABS: Hypochromasia Slight
[2019-12-10 06:57] LABS: Microcytosis 1+; Platelet Estimate Decreased
[2019-12-10 07:09] LABS: Alanine Aminotransferase < 9 U/L (13-56); Albumin 2.3 G/DL (3.4-5.0); Alkaline Phosphatase 121 U/L (45-117); Aspartate Amino Transferase 11 U/L (0-37); Blood Urea Nitrogen 57 MG/DL (7-18); Calcium 7.4 MG/DL (8.5-10.1); Estimated Glom Filtration Rate 3 ML/MIN; Glucose 113 MG/DL (74-106); Osmolality,Calculated 280.5 MOS/KG (273-304); Total Protein 7.5 G/DL (6.4-8.3)
[2019-12-10] MEDS: INSULIN LISPRO 100 UNIT/ML SUBCUT SCH ×4 (08:32→20:20)
[2019-12-10] MEDS: PANTOPRAZOLE 40 MG TABLET PO SCH (09:55)
[2019-12-10] MEDS: cefTRIAXone 1,000 MG in SYRINGE 1 EACH IV SCH (09:55)
[2019-12-10] MEDS: AZITHROMYCIN INJ 500 MG in SODIUM CHLORIDE 0.9% 250 ML IV SCH (09:56)
[2019-12-10] MEDS: INSULIN GLARGINE 100 UNIT/ML SUBCUT SCH (20:20)
[2019-12-11] MEDS: INSULIN LISPRO 100 UNIT/ML SUBCUT SCH ×2 (08:03→12:14)
[2019-12-11] MEDS: PANTOPRAZOLE 40 MG TABLET PO SCH (08:43)
[2019-12-11] MEDS: AZITHROMYCIN INJ 500 MG in SODIUM CHLORIDE 0.9% 250 ML IV SCH (08:43)
[2019-12-11] MEDS: cefTRIAXone 1,000 MG in SYRINGE 1 EACH IV SCH (08:43)
[2019-12-11 12:56] VITALS: BP 154/69
[2019-12-12] MEDS ORDERED: AZITHROMYCIN 250 MG TABLET PO SCH (09:00)
== END 2019-12-11 16:15 | disposition home or self-care (01) | DRG 193 ==
LOC: N.2E → SUATTDRO 11:49 → OBSVTOIN 11:49
PROVIDERS: ADMIT Internal Medicine; ATTEND Internal Medicine